=== PATIENT | female | born 2000 | race Caucasian/White ===

== ENCOUNTER 2025-05-30 16:37 | Emergency (ER) | payer OTHER ==
[~2025-05-30] VITALS: Ht 170.2 cm; Wt 68.0 kg
[2025-05-30 16:47] VITALS: O2SAT 100
[2025-05-30] MEDS: BACITRACIN ZINC OINT UDPKT TOP ONE (17:45)
[2025-05-30] MEDS ORDERED: AMOX1TAB16 MT (17:54)
[2025-05-30] MEDS ORDERED: BO1 TP (17:54)
[2025-05-30 18:25] VITALS: BP 118/72; PULSE 69; RESP 16; TEMP 36.8; O2SAT 100
== END 2025-05-30 18:56 | disposition home or self-care (01) ==
LOC: ER 16:37
DX: S60.511A Abrasion of right hand, initial encounter (principal); Z98.890 Other specified postprocedural states; W55.03XA Scratched by cat, initial encounter; Y99.0 Civilian activity done for income or pay; Y92.89 Other specified places as the place of occurrence of the external cause
CPT/HCPCS: 99282; 99283